=== PATIENT | female | born 1950 ===

== ENCOUNTER → 2021-02-10 15:36 | Outpatient (BNVA) | payer MEDICARE, OTHER, SELFPAY | PROVIDERS: PCP Family Medicine Adult Medicine; Visit Provider Anesthesiology | DX: M48.00 Spinal stenosis, site unspecified (principal); M79.18 Myalgia, other site; F17.210 Nicotine dependence, cigarettes, uncomplicated; Z79.899 Other long term (current) drug therapy | CPT/HCPCS: 99202 ==